=== PATIENT | male | born 1950 | race Caucasian/White ===

== ENCOUNTER → 2019-01-10 | Outpatient (CLI) | payer OTHER ==
[~2019-01-10] MED LIST: AMINOPHYLLINE INJ/PF 250 MG/10 ML SDV IV ONE; REGADENOSON INJ 0.4 MG/5 ML DISP.SYRIN IV ONE
--- NOTE | 2019-01-10 15:48 | DRAGON STRESS TEST REPORT ---
INTRAVENOUS LEXISCAN CARDIOLITE STRESS TEST USING SINGLE PHOTON EMMISION COMPUTERIZED TOMOGRAPHIC. DATE OF PROCEDURE: January 10, 2019, INDICATION : Dyspnea CARDIAC RISK FACTORS: Known CABG 2012, diabetes, hypertension, dyslipidemia RESTING EKG: Sinus rhythm without any baseline ST-T wave changes. STRESS EKG: No significant ST segment changes noted with LexiScan bolus REASON FOR TERMINATION: Protocol. PROCEDURE REPORT: Baseline heart rate 86 beats per minute with blood pressure of 165/79. Patient had no significant complaints. Patient was bolused with Lexiscan 0.4 mg intravenously followed by saline bolus. Heart rate at 2 minutes post bolus 83 with a blood pressure of 147/55. 3 minutes post bolus heart rate 82 with blood pressure of 157/63. No significant EKG changes were noted. Patient had no significant complaints during the procedure or postprocedure. CONCLUSIONS: Normal EKG and hemodynamic response to IV LexiScan. NUCLEAR DATA: At rest the patient was given 15.22 millicuries of technetium 99 sestamibi injected intravenously. As per protocol rest gated SPECT images were obtained. On day of stress test, the patient was given intravenous LexiScan at a dose of 0.4 mg in 5 mL intravenously, followed by flush with normal saline. Subsequently the stress dose of 46.9 millicuries of technetium 99 sestamibi was injected intravenously. As per protocol stress gated images were obtained. NUCLEAR INTERPRETATION: Both raw and processed data were used for interpretation. Visual, qualitative, computer-generated quantitative data was used. There was good myocardial uptake of technetium compound. Motion artifact and soft tissue attenuations were noted. Increased visceral uptake was noted. Diaphragmatic and subdiaphragmatic attenuation artifacts were noted. Mild inferior wall transient perfusion defect consistent with probable mild ischemia noted, No definitive areas of fixed perfusion defect or scars noted. EKG gated imaging showed LV EF at 60 %, rest and stress gated EF similar visually. T. I D. ratio was 0.84. Lung heart ratio noted to be within normal limits 0.37. No significant extracardiac and abnormal radiotracer activities were noted. RV free wall uptake was noted to be WNL. IMPRESSION: Also refer to comments under nuclear interpretation. Also test results needs to be interpreted in the context of pretest probability. 1. Mild inferior wall transient perfusion defect consistent with probable mild ischemia noted. However there were no corresponding regional wall motion abnormalities, possibility of this being artifactual cannot be entirely ruled out. Clinical correlation is requested. 2. There is no definitive scintigraphic evidence of myocardial infarction/scar. 3. EKG gated imaging shows left ventricular ejection fraction of approx. 60 %. 4. Clinical correlation requested as worse disease and or balanced ischemia could be missed. In approximately 10% of the cases Lexiscan may not cause adequate vasodilatory stress. RECOMMENDATIONS: Aggressive risk factor modification and medical management. Further evaluation may be needed if continued symptoms or other high risk indicators are noted on clinical evaluation. If patient has significant symptoms, may consider further evaluation, with a stress echo, stress MRI, PET stress scan etc. Close cardiology follow-up is also recommended. Clinical correlation with echocardiogram derived ejection fraction. Inability to exercise by itself can lead to increased cardiovascular event risks. Consider cardiology consultation and or follow-up if clinically indicated. I am available for cardiology evaluation and consultation if requested by the engineering model maker, unless patient already has a rod pointer. Dr. Jalen Dalton. MRCP Board certified in cardiology and sleep medicine. Board certified in nuclear cardiology, adult echocardiography. PHU
== END ==
LOC: RAD 06:13
PROVIDERS: ATTEND Physician Assistant Medical
DX: I25.10 Atherosclerotic heart disease of native coronary artery without angina pectoris (principal); Z95.1 Presence of aortocoronary bypass graft; I10 Essential (primary) hypertension
CPT/HCPCS: 93017; 78452; A9500; J2785; J0280; Q9969

== ENCOUNTER 2020-03-02 11:43 | Observation (INO) | payer OTHER ==
--- NOTE | 2020-03-02 12:40 | ER Document Report ---
ED Medical Screen (RME) - General Stated Complaint: CHEST TIGHTNESS Time Seen by Provider: 03/02/20 12:34 Primary Care Provider: KAYLIN VILLA PA [Primary Care Provider] - Follow up as needed Mode of Arrival: Ambulatory Information source: Patient Notes: HPI; 69-year-old male past medical history significant for hypertension, diabetes, open heart surgery presents to the emergency room with intermittent chest tightness for the past 3 to 4 months. States it happens daily last for about 10 to 15 minutes and goes away without intervention. He denies any diaphoresis, no nausea, no vomiting. Denies any shortness of breath. Has been taking Tylenol with relief. PE: Alert and oriented x3. Lungs: Clear to auscultation without rales, rhonchi, wheezes. Heart: Regular rate rhythm without murmurs, rubs, gallops. I have greeted and performed a rapid initial assessment of this patient. A comprehensive ED assessment and evaluation of the patient, analysis of test results and completion of the medical decision making process will be conducted by additional ED providers. I have specifically instructed the patient or family members with the patient to immediately return to any nursing staff should anything change in the patient's condition or with their chief complaint. TRAVEL OUTSIDE OF THE [place] IN LAST 30 DAYS: No Physical Exam - Vital signs Vitals: Temp Pulse Resp BP Pulse Ox 98.6 F 61 18 163/88 H 98 03/02/20 12:28 03/02/20 12:28 03/02/20 12:28 03/02/20 12:28 03/02/20 12:28 Course - Vital Signs Vital signs: Temp Pulse Resp BP Pulse Ox 98.6 F 61 18 163/88 H 98 03/02/20 12:28 03/02/20 12:28 03/02/20 12:28 03/02/20 12:28 03/02/20 12:28 Doctor's Discharge - Discharge Referrals: KAYLIN VILLA PA [Primary Care Provider] - Follow up as needed
[2020-03-02 13:17] LABS: ABSOLUTE BASOPHILS # (AUTO) 0.1 10^3/uL (0.0-0.2); ABSOLUTE EOSINOPHILS # (AUTO) 0.1 10^3/uL (0.0-0.6); ABSOLUTE LYMPHOCYTES (AUTO) 1.6 10^3/uL (0.5-4.7); ABSOLUTE MONOCYTES (AUTO) 1.1 10^3/uL (0.1-1.4); BASOPHILS % (AUTO) 0.6 % (0-2); EOSINOPHILS % (AUTO) 1.1 % (0-6); HEMATOCRIT 41.9 % (37.9-51.0); HEMOGLOBIN 14.9 g/dL (13.5-17.0); LYMPHOCYTES % (AUTO) 16.5 % (13-45); MEAN CORPUSCULAR HEMOGLOBIN 33.5 pg (27.0-33.4); MEAN CORPUSCULAR HGB CONC 35.5 g/dL (32.0-36.0); MEAN CORPUSCULAR VOLUME 95 fl (80-97); MONOCYTES % (AUTO) 11.2 % (3-13); PLATELET COUNT 200 10^3/uL (150-450); RED BLOOD COUNT 4.43 10^6/uL (4.35-5.55); SEGMENTED NEUTROPHILS % (AUTO) 70.6 % (42-78); TOTAL CELLS COUNTED % (AUTO) 100 %; WHITE BLOOD COUNT 9.9 10^3/uL (4.0-10.5)
--- NOTE | 2020-03-02 13:20 | RADIOLOGY REPORT (SQ) ---
EXAM DESCRIPTION: CHEST 2 VIEWS IMAGES COMPLETED DATE/TIME: 03/02/2020 1:06 pm REASON FOR STUDY: chest pain COMPARISON: None. EXAM PARAMETERS: NUMBER OF VIEWS: two views TECHNIQUE: Digital Frontal and Lateral radiographic views of the chest acquired. RADIATION DOSE: NA LIMITATIONS: none FINDINGS: LUNGS AND PLEURA: No opacities, masses or pneumothorax. No pleural effusion. MEDIASTINUM AND HILAR STRUCTURES: No masses or contour abnormalities. HEART AND VASCULAR STRUCTURES: Heart normal size. No evidence for failure. BONES: No acute findings. HARDWARE: Prior anterior median sternotomy. OTHER: No other significant finding. IMPRESSION: 1. NO ACUTE RADIOGRAPHIC FINDING IN THE CHEST. TECHNICAL DOCUMENTATION: JOB ID: [id number] 2010 [employer]- All Rights Reserved Reading location - IP/workstation name: [email or web address]
[2020-03-02 13:36] LABS: ALBUMIN 4.2 g/dL (3.5-5.0); ALKALINE PHOSPHATASE 63 U/L (38-126); ANION GAP 6 (5-19); ASPARTATE AMINO TRANSFERASE 34 U/L (17-59); BILIRUBIN,DIRECT 0.2 mg/dL (0.0-0.4); BILIRUBIN,TOTAL 0.9 mg/dL (0.2-1.3); BLOOD UREA NITROGEN 10 mg/dL (7-20); CALCIUM 9.7 mg/dL (8.4-10.2); CARBON DIOXIDE 30 mmol/L (22-30); CHLORIDE 102 mmol/L (98-107); GLUCOSE 104 mg/dL (75-110); POTASSIUM 4.5 mmol/L (3.6-5.0); TOTAL PROTEIN 6.9 g/dL (6.3-8.2)
--- NOTE | 2020-03-02 15:53 | EKG REPORT ---
SEVERITY:- ABNORMAL ECG - SINUS RHYTHM NONSPECIFIC T ABNORMALITIES, INFERIOR LEADS : Confirmed by: Brenda Donovan MD 02-Mar-2020 15:53:13
[2020-03-02] MEDS ORDERED: METOPROLOL TARTRATE 25 MG TABLET PO ONE ×2 (19:34→23:00)
--- NOTE | 2020-03-02 19:45 | ER Document Report ---
ED Cardiac - General Stated Complaint: CHEST TIGHTNESS Time Seen by Provider: 03/02/20 12:34 Primary Care Provider: KAYLIN VILLA PA [PHYSICIAN [facility]] - Follow up as needed Mode of Arrival: Ambulatory Notes: CHIEF COMPLAINT: Chest pain HPI: 69-year-old male with history of diabetes, hypertension, dyslipidemia, CABG x2 8 years ago presenting for evaluation of intermittent midsternal chest discomfort that he describes as an irritation that he states is somewhat exertional in nature. It occurs almost daily, does not occur at rest. Has not had it at all today. Does not have any radiation of the discomfort into the back neck or shoulders. Reports no shortness of breath with this no abdominal pain nausea or vomiting. Patient follows with cardiology at the [facility]. States his last stress test was in 2019. ROS: See HPI - all other systems were reviewed and are otherwise negative Constitutional: no fever Eyes: no drainage, no blurred vision ENT: no runny nose, no sore throat Cardiovascular: + chest pain Resp: no SOB, no cough GI: no vomiting, no diarrhea, no abdominal pain : no dysuria Integumentary: no rash Allergy: no hives Musculoskeletal: no extremity pain or swelling Neurological: no numbness/tingling, no weakness MEDICATIONS: I agree with the patient medications as charted by the RN. ALLERGIES: I agree with the allergies as charted by the RN. PAST MEDICAL HISTORY/PAST SURGICAL HISTORY: Reviewed and agree as charted by RN. SOCIAL HISTORY: Reviewed and agree as charted by RN. FAMILY HISTORY: No significant familial comorbid conditions directly related to patient complaint EXAM: Reviewed vital signs as charted by RN. CONSTITUTIONAL: Alert and oriented and responds appropriately to questions. Well-appearing; well-nourished HEAD: Normocephalic; atraumatic EYES: PERRL; Conjunctivae clear, sclerae non-icteric ENT: normal nose; no rhinorrhea; moist mucous membranes; pharynx without lesions noted, no uvula edema or deviation, no tonsillar hypertrophy, phonation normal NECK: Supple without meningismus; non-tender; no cervical lymphadenopathy, no masses CARD: RRR; no murmurs, no clicks, no rubs, no gallops; symmetric distal pulses RESP: Normal chest excursion without splinting or tachypnea; breath sounds clear and equal bilaterally; no wheezes, no rhonchi, no rales, pulse oximetry 97% on room air not hypoxic ABD/GI: Normal bowel sounds; non-distended; soft, non-tender, no rebound, no guarding; no palpable organomegaly or masses. BACK: The back appears normal and is non-tender to palpation, there is no CVA tenderness EXT: Normal ROM in all joints; non-tender to palpation; no cyanosis, no effusions, no edema SKIN: Normal color for age and race; warm; dry; good turgor; no acute lesions noted NEURO: Moves all extremities equally; Motor and sensory function intact PSYCH: The patient's mood and manner are appropriate. Grooming and personal hygiene are appropriate. MDM: 69-year-old male with significant cardiac history presenting for chest pain episodes that have been ongoing for 3 or 4 months. Seems to be somewhat exertional in nature. When I spoke with the patient at length he begins to backtrack and states that it only occurs when he changes from cold to hot or hot to cold temperatures. No radiation of the symptoms. Patient's initial troponin was 0.036. EKG normal sinus rhythm with a ventricular rate of 63 MA 188 QT 408 QTC 418. There are nonspecific T wave abnormalities in the inferior and lateral leads. No old EKG for comparison. Abnormal EKG. Interpreted by emergency department physicians. Patient is noted to be moderately hypertensive. He is not sure of his medications but believes he takes his metoprolol twice daily. Shirley fam has not taken his evening dose. Will give his evening dose. He is not having any chest discomfort at this time. Appears to be in a normal sinus rhythm on the monitor at this time. I spoke with the patient at length given his history that he will likely need admission to the hospital for repeat stress test and sequential troponins. Patient states adamantly that he wants to go home after his next troponin. He is willing to stay for that but states that his is here and he does not wish to stay to be admitted. He is aware that we cannot rule out that he is having exertional angina or ACS. I spoke with Dr. Oquendo attending about this at length. TRAVEL OUTSIDE OF THE [place] IN LAST 30 DAYS: No Past Medical History - General Information source: Patient - Social History Smoking Status: Unknown if Ever Smoked Family History: CAD Physical Exam - Vital signs Vitals: Temp Pulse Resp BP Pulse Ox 98.6 F 61 18 163/88 H 98 03/02/20 12:28 03/02/20 12:28 03/02/20 12:28 03/02/20 12:28 03/02/20 12:28 Course - Re-evaluation Re-evalutation: 03/02/20 20:14 Patient is spoken to his who insists that she wishes the patient to stay. Patient states that he will stay to have further evaluation. Second troponin being drawn at this time. 03/02/20 20:[address] Mckeon cardiology. Case was discussed, labs and EKG were reviewed. He states he will be happy to consult on the patient if hospitalist admits. Spoke with Dr. Torrez, hospitalist. Case was discussed labs were reviewed will come see the patient. - Vital Signs Vital signs: Temp Pulse Resp BP Pulse Ox 98.6 F 61 18 163/88 H 98 03/02/20 12:28 03/02/20 12:28 03/02/20 12:28 03/02/20 12:28 03/02/20 12:28 - Laboratory Result Diagrams: 03/02/20 12:55 03/02/20 12:55 Laboratory results interpreted by me: 03/02/20 12:55 MCH 33.5 H Discharge - Discharge Clinical Impression: Chest pain Qualifiers: Chest pain type: other chest pain Qualified Code(s): R07.89 - Other chest pain; R07.8 - Other chest pain HTN (hypertension) Qualifiers: Hypertension type: essential hypertension Qualified Code(s): I10 - Essential (primary) hypertension Condition: Stable Disposition: ADMITTED OBSERVATION Admitting Provider: Shan Unit Admitted: Telemetry Referrals: KAYLIN VILLA PA [PHYSICIAN [facility]] - Follow up as needed
[2020-03-02] MEDS ORDERED: NITROGLYCERIN 2% OINTMENT 1 GM PACKET TP ONE (20:15)
[2020-03-02] MEDS ORDERED: ACETAMINOPHEN 325 MG TABLET PO PRN (21:07)
[2020-03-02] MEDS ORDERED: ONDANSETRON HCL INJ/PF 4 MG/2 ML SDV IV PRN (21:07)
--- NOTE | 2020-03-02 21:12 | PDOC H&P ---
History of Present Illness Admission Date/PCP: 03/02/20 20:44 TEOFILO MAXWELL DO Patient complains of: Chest tightness History of Present Illness: NIECY CARBONE is a 69 year old male with a history of CAD status post CABG, diabetes, hypertension and hyperlipidemia who presents with few weeks duration of intermittent chest pain. He describes the pain as left-sided, tightness, 3- 5/10 intensity, lasting for 10-12 minutes, nonradiating, not associated with exertion. Last episode was 1 day ago. Patient has not noticed any aggravating or relieving factor for his pain. Patient denies having any chest pain today but was told by his primary care doctor at the [facility] to go to the ER. Patient denies any shortness of breath, diaphoresis, nausea, vomiting. He also denies any cough, fever, chills or any recent sick contact history. Social History Information Source: Patient Lives with: Family Smoking Status: Never Smoker Frequency of Alcohol Use: Rare Hx Recreational Drug Use: No Drugs: None - Advance Directive Resuscitation Status: Full Code Family History Family History: CAD Parental Family History Reviewed: Yes Children Family History Reviewed: Yes Sibling(s) Family History Reviewed.: Yes Review of Systems Constitutional: ABSENT: chills, fever(s), headache(s), weight gain, weight loss Eyes: ABSENT: visual disturbances Ears: ABSENT: hearing changes Nose, Mouth, and Throat: ABSENT: headache(s), mouth pain, sore throat, vertigo Cardiovascular: PRESENT: as per HPI Respiratory: PRESENT: as per HPI Gastrointestinal: ABSENT: abdominal pain, constipation, diarrhea, hematemesis, hematochezia, nausea, vomiting Genitourinary: ABSENT: dysuria, hematuria Musculoskeletal: ABSENT: joint swelling Integumentary: ABSENT: rash, wounds Neurological: ABSENT: abnormal gait, abnormal speech, confusion, dizziness, focal weakness, syncope Psychiatric: ABSENT: anxiety, depression, homidical ideation, suicidal ideation Endocrine: ABSENT: cold intolerance, heat intolerance, polydipsia, polyuria Hematologic/Lymphatic: ABSENT: easy bleeding, easy bruising Physical Exam Vital Signs: Temp Pulse Resp BP Pulse Ox 98.6 F 58 L 14 180/90 H 97 03/02/20 20:38 03/02/20 20:38 03/02/20 20:38 03/02/20 20:38 03/02/20 20:38 Intake & Output 03/01/20 03/02/20 03/03/20 06:59 06:59 06:59 Weight 112.6 kg Additional comments: GENERAL APPEARANCE: Alert and oriented x3, in no acute distress HEENT: Normocephalic and atraumatic. No scleral icterus. Moist oral mucosa NECK: Supple. No lymphadenopathy or tenderness. No carotid bruit. No JVD CHEST: Symmetric. Nontender to palpation. LUNGS: Clear with good air entry bilaterally. No wheezing or crackles HEART: Regular rate and rhythm with normal S1 and S2. No murmurs, gallops, or rubs. ABDOMEN: Flat, soft, active bowel sounds, no direct or rebound tenderness. No organomegaly detected. EXTREMITIES: No cyanosis, clubbing, or edema. MUSCULOSKELETAL: No deformity, atrophy or swelling noted PSYCHIATRIC: Recent and remote memory is intact. Appropriate mood and affect. SKIN: Warm, dry, and well perfused. No lesions or rashes are noted. NEUROLOGIC: No focal sensory or motor deficits are noted. Results Laboratory Results: 03/02/20 12:55 03/02/20 12:55 03/02/20 03/02/20 12:55 12:55 WBC 9.9 RBC 4.43 Hgb 14.9 Hct 41.9 MCV 95 MCH 33.5 H MCHC 35.5 RDW 13.0 Plt Count 200 Seg Neutrophils % 70.6 Sodium 138.4 Potassium 4.5 Chloride 102 Carbon Dioxide 30 Anion Gap 6 BUN 10 Creatinine 0.91 Est GFR ( Amer) > 60 Glucose 104 Calcium 9.7 Total Bilirubin 0.9 AST 34 Alkaline Phosphatase 63 Total Protein 6.9 Albumin 4.2 03/02/20 12:55 Troponin I 0.036 Impressions: Chest X-Ray 03/02/20 12:39 IMPRESSION: 1. NO ACUTE RADIOGRAPHIC FINDING IN THE CHEST. Assessment and Plan - Diagnosis (1) Chest pain Qualifiers: Chest pain type: other chest pain Qualified Code(s): R07.89 - Other chest pain; R07.8 - Other chest pain Is this a current diagnosis for this admission?: Yes Plan: Patient presents with atypical chest pain Has multiple risk factors Had a stress test in 2019, and patient states that it was negative Initial cardiac enzyme 0.036 EKG shows inverted T waves on inferior leads Continue trending cardiac enzymes and EKG every 6 hourly Continue aspirin, atorvastatin, metoprolol Nitroglycerin as needed for chest pain Placed him on telemetry monitoring Touch base with cardiology in the morning (2) Type 2 diabetes mellitus Is this a current diagnosis for this admission?: Yes Plan: Hold Metformin for now while inpatient Sliding scale insulin, Accu-Chek and hypoglycemia protocol On diabetic diet (3) Hyperlipidemia Is this a current diagnosis for this admission?: Yes Plan: We will check lipid panel Continue high intensity statin (4) CAD (coronary artery disease) Is this a current diagnosis for this admission?: Yes Plan: Status post CABG in 2012 Now admitted for chest pain rule out ACS Continue aspirin and statin Rest of management as outlined above under chest pain (5) HTN (hypertension) Qualifiers: Hypertension type: essential hypertension Qualified Code(s): I10 - Essential (primary) hypertension Is this a current diagnosis for this admission?: Yes Plan: We will continue to adjust medication for optimal management of his blood pressure Continue home losartan, amlodipine and metoprolol (6) Obesity (BMI 30-39.9) Is this a current diagnosis for this admission?: Yes Plan: Encourage lifestyle adjustments including dietary change and exercise to attain optimal weight - Time Time Spent with patient: 35 or more minutes Total Critical Time (Minutes): 40 Medications reviewed and adjusted accordingly: Yes Anticipated Discharge Disposition: Home, Self Care Anticipated Discharge Timeframe: within 48 hours - Inpatient Certification Based on my medical assessment, after consideration of the patient's comorbidities, presenting symptoms, or acuity I expect that the services needed warrant INPATIENT care.: Yes I certify that my determination is in accordance with my understanding of Medicare's requirements for reasonable and necessary INPATIENT services [42 CFR 412.3e].: Yes Medical Necessity: Need Close Monitoring Due to Risk of Patient Decompensation, Need For Continuous Telemetry Monitoring Post Hospital Care: D/C or Transfer Summary
[2020-03-02] MEDS ORDERED: ZOLPIDEM TARTRATE 5 MG TABLET PO PRN (21:44)
[2020-03-02] MEDS ORDERED: ATORVASTATIN CALCIUM 80 MG TABLET PO SCH (22:00)
[2020-03-02] MEDS: AMLODIPINE BESYLATE 10 MG TABLET PO SCH (22:02)
[2020-03-02] MEDS: FAMOTIDINE 20 MG TABLET PO SCH (22:02)
[2020-03-02] MEDS ORDERED: DEXTROSE 40% GEL 15 GM TUBE PO PRN ×2 (22:11)
[2020-03-02] MEDS ORDERED: GLUCAGON,HUMAN RECOMB 1 MG INJ IM PRN (22:11)
[2020-03-02] MEDS ORDERED: DEXTROSE 50%-WATER 25 GM/50 ML DISP.SYRIN IV PRN ×2 (22:11)
[2020-03-03 06:10] LABS: CHOLESTEROL 104.72 mg/dL (0-200); TRIGLYCERIDES 114 mg/dL (<150)
[2020-03-03 06:21] LABS: DIRECT LDL 47 mg/dL (<100)
[2020-03-03] MEDS ORDERED: INSULIN REG, HUMAN 100 UNIT/ML 3 ML VIAL (PYX) SUBCUT SCH (08:00)
--- NOTE | 2020-03-03 08:11 | PDOC CONSULTATION ---
Consultation Consult Date: 03/03/20 Attending physician:: SHANNAN WHEAT Provider Consulted: RODGER HARRIS Consult reason:: CP History of Present Illness Admission Date/PCP: 03/02/20 20:44 TEOFILO MAXWELL DO History of Present Illness: NIECY CARBONE is a 69 year old male with a history of CAD status post two- vessel CABG in 2011 in [place], diabetes, hypertension and hyperlipidemia who is consulted to our service for evaluation of chest pain. The patient began with chest pain approximately 3 weeks ago and describes it as a very mild irritation "like a baby scratching my chest", localized to the substernal area, lasting for approximately 10 minutes, triggered when moving to hot weather to air conditioning and vice versa, it resolves spontaneously, it is not triggered by his daily chores (this patient is very sedentary) and is not associated with shortness of breath, diaphoresis, palpitations, dizziness, lightheadedness, syncope or presyncope. He did have a mildly abnormal Lexiscan nuclear stress test in December 2018 at this facility with mild inferior wall ischemia versus artifact. He states that he was then referred to a office technology instructor at [facility] where, per his report, he underwent echocardiography with normal results. He states that he sees a office technology instructor in [place] every 6 months however does not remember his name. Since he was admitted to the emergency room he has remained hemodynamically stable and chest pain-free. His EKG is unremarkable for ischemia. He is eager to go home. Physical exam on 03/03/2020: GENERAL: Obese. Pleasant and conversational. Oriented x3 with normal mood. Not in acute distress. Well groomed and well developed. HEENT: Normocephalic, atraumatic. Pupils equal. Sclerae anicteric. Oropharynx moist. NECK: No JVD. No carotid bruits. LUNGS: Clear to auscultation bilaterally. Normal respiratory effort without the use of accessory muscles or intercostal retractions. CARDIOVASCULAR: Regular rate and rhythm, normal S1 and S2 without murmurs, rubs, or gallops. PMI not displaced. EXTREMITIES: No edema, no cyanosis, no clubbing. +2 pulses femoral and pedal pulses bilaterally. SKIN: No lesions or rashes. MUSCULOSKELETAL: No chest tenderness to palpation. NEUROLOGIC: Nonfocal. No gross sensory or motor deficits bilateral upper or lower extremities. Social History Lives with: Family Smoking Status: Never Smoker Frequency of Alcohol Use: Rare Hx Recreational Drug Use: No Drugs: None - Advance Directive Resuscitation Status: Full Code Family History Family History: CAD Parental Family History Reviewed: Yes Children Family History Reviewed: Yes Sibling(s) Family History Reviewed.: Yes Physical Exam Vital Signs: Temp Pulse Resp BP Pulse Ox 98.5 F 55 L 16 135/84 H 97 03/03/20 00:15 03/03/20 00:15 03/03/20 00:15 03/03/20 00:15 03/03/20 00:15 Intake & Output 03/02/20 03/03/20 03/04/20 06:59 06:59 06:59 Weight 112.6 kg Results Laboratory Results: 03/02/20 12:55 03/02/20 12:55 03/02/20 03/02/20 03/03/20 12:55 12:55 05:07 WBC 9.9 RBC 4.43 Hgb 14.9 Hct 41.9 MCV 95 MCH 33.5 H MCHC 35.5 RDW 13.0 Plt Count 200 Seg Neutrophils % 70.6 Sodium 138.4 Potassium 4.5 Chloride 102 Carbon Dioxide 30 Anion Gap 6 BUN 10 Creatinine 0.91 Est GFR ( Amer) > 60 Glucose 104 Calcium 9.7 Total Bilirubin 0.9 AST 34 Alkaline Phosphatase 63 Total Protein 6.9 Albumin 4.2 Triglycerides 114 Cholesterol 104.72 LDL Cholesterol Direct 47 VLDL Cholesterol 23.0 HDL Cholesterol 38 L 03/02/20 03/02/20 03/02/20 12:55 20:18 23:31 Troponin I 0.036 0.030 0.038 03/03/20 05:07 Troponin I 0.040 Impressions: Chest X-Ray 03/02/20 12:39 IMPRESSION: 1. NO ACUTE RADIOGRAPHIC FINDING IN THE CHEST. 03/02/20 12:55 03/02/20 12:55 MCV 95 fl (80-97) 03/02/20 12:55 MCH 33.5 pg (27.0-33.4) H 03/02/20 12:55 MCHC 35.5 g/dL (32.0-36.0) 03/02/20 12:55 RDW 13.0 % (11.5-14.0) 03/02/20 12:55 Seg Neutrophils % 70.6 % (42-78) 03/02/20 12:55 Chloride 102 mmol/L (98-107) 03/02/20 12:55 Carbon Dioxide 30 mmol/L (22-30) 03/02/20 12:55 Anion Gap 6 (5-19) 03/02/20 12:55 Est GFR ( Amer) > 60 (>60) 03/02/20 12:55 Glucose 104 mg/dL (75-110) 03/02/20 12:55 Calcium 9.7 mg/dL (8.4-10.2) 03/02/20 12:55 Total Bilirubin 0.9 mg/dL (0.2-1.3) 03/02/20 12:55 AST 34 U/L (17-59) 03/02/20 12:55 Alkaline Phosphatase 63 U/L (38-126) 03/02/20 12:55 Total Protein 6.9 g/dL (6.3-8.2) 03/02/20 12:55 Albumin 4.2 g/dL (3.5-5.0) 03/02/20 12:55 Triglycerides 114 mg/dL (<150) 03/03/20 05:07 Cholesterol 104.72 mg/dL (0-200) 03/03/20 05:07 LDL Cholesterol Direct 47 mg/dL (<100) 03/03/20 05:07 VLDL Cholesterol 23.0 mg/dL (10-31) 03/03/20 05:07 HDL Cholesterol 38 mg/dL (>40) L 03/03/20 05:07 03/02/20 03/02/20 03/02/20 12:55 20:18 23:31 Troponin I 0.036 0.030 0.038 03/03/20 05:07 Troponin I 0.040 Current Medication List Generic Name Dose Route Start Last Admin Trade Name Freq PRN Reason Stop Dose Admin Acetaminophen 650 mg 03/02/20 21:07 Acetaminophen 325 Mg Tablet PO 04/01/20 21:06 Q4HP PRN FOR HEADACHE Amlodipine Besylate 10 mg 03/02/20 22:00 03/02/20 22:02 Amlodipine Besylate 10 Mg Tablet PO 04/01/20 21:59 10 mg DAILY KAYLA Administration Aspirin 81 mg 03/03/20 10:00 Aspirin 81 Mg Tablet, Chewable PO 04/02/20 09:59 DAILY KAYLA Atorvastatin Calcium 80 mg 03/02/20 22:00 03/02/20 22:03 Atorvastatin Calcium 80 Mg Tablet PO 04/01/20 21:59 80 mg QHS KAYLA Administration Dextrose 12.5 gm 03/02/20 22:11 Dextrose 50%-Water 25 Gm/50 Ml Disp.Syrin IV 04/01/20 22:10 PRN PRN FOR BG 50-69 IN ALERT PATIENT Protocol Dextrose 25 gm 03/02/20 22:11 Dextrose 50%-Water 25 Gm/50 Ml Disp.Syrin IV 04/01/20 22:10 PRN PRN PER PROTOCOL Protocol Enoxaparin Sodium 40 mg 03/03/20 10:00 Enoxaparin Sodium Inj 40 Mg/0.4 Ml Disp.Syrin SUBCUT 04/02/20 09:59 DAILY KAYLA Famotidine 20 mg 03/02/20 22:00 03/02/20 22:02 Famotidine 20 Mg Tablet PO 04/01/20 21:59 20 mg Q12 KAYLA Administration Glucagon 1 mg 03/02/20 22:11 Glucagon,Human Recomb 1 Mg Inj IM 04/01/20 22:10 PRN PRN Evaluate for BG < 70 Protocol Glucose 15 gm 03/02/20 22:11 Dextrose 40% Gel 15 Gm Tube PO 04/01/20 22:10 PRN PRN FOR BG 50-69 IN ALERT PATIENT Protocol Glucose 30 gm 03/02/20 22:11 Dextrose 40% Gel 15 Gm Tube PO 04/01/20 22:10 PRN PRN FOR BG < 50 IN ALERT PATIENT Protocol Insulin Human Regular 0 - 12 unit 03/03/20 08:00 Insulin Reg, Human 100 Unit/Ml 3 Ml Vial (Pyx) SUBCUT 04/02/20 07:59 ACHS [facility] Protocol Losartan Potassium 50 mg 03/03/20 10:00 Losartan Potassium 50 Mg Tablet PO 04/02/20 09:59 DAILY [facility] Metoprolol Tartrate 25 mg 03/03/20 10:00 Metoprolol Tartrate 25 Mg Tablet PO 04/02/20 09:59 Q12 [facility] Ondansetron HCl 4 mg 03/02/20 21:07 Ondansetron Hcl Inj/Pf 4 Mg/2 Ml Sdv IV 04/01/20 21:06 Q8HP PRN FOR NAUSEA/VOMITING Zolpidem Tartrate 10 mg 03/03/20 22:00 Zolpidem Tartrate 5 Mg Tablet PO 03/10/20 21:59 QHS KAYLA Discontinued Medications Generic Name Dose Route Start Last Admin Trade Name Srinath PRN Reason Stop Dose Admin Metoprolol Tartrate 25 mg 03/02/20 19:34 03/02/20 19:56 Metoprolol Tartrate 25 Mg Tablet PO 03/02/20 19:35 25 mg NOW ONE Administration Metoprolol Tartrate 25 mg 03/02/20 23:00 03/02/20 22:59 Metoprolol Tartrate 25 Mg Tablet PO 03/02/20 23:01 Not Given NOW ONE Nitroglycerin 1 gm 03/02/20 20:15 03/02/20 20:26 Nitroglycerin 2% Ointment 1 Gm Packet TP 03/02/20 20:16 1 gm NOW ONE Administration Zolpidem Tartrate 10 mg 03/02/20 21:44 Zolpidem Tartrate 5 Mg Tablet PO 03/09/20 21:43 HSP PRN SLEEP OR INSOMNIA Assessment & Plan - Diagnosis (1) CAD (coronary artery disease) Qualifiers: Coronary Disease-Associated Artery/Lesion type: bypass graft Associated angina: with stable angina Is this a current diagnosis for this admission?: Yes Plan: 69-year-old male with the above history who now presents to the hospital with a 3 weeks history of atypical chest pain in the setting of a mildly abnormal Lexiscan nuclear stress test in December 2018 which was followed by an echocardiogram in [place] with apparently normal results. He describes a v katarzyna atypical chest pain and his cardiac troponins, although detectable, they are indeterminate range and flat. At this time I do not see an acute indication for this patient to be admitted to the hospital and we will proceed with medical management as depicted below. He was instructed to call his office technology instructor in [place] as soon as he is discharged to arrange for follow-up appointment within 1 to 2 weeks. Recommendations: -Continue with current outpatient medical management. -Add Imdur 15 mg p.o. daily. -Sublingual nitroglycerin as instructed. -Call 911 if symptoms recur. -The patient may be discharged home from the cardiovascular standpoint with follow-up with his outpatient office technology instructor within 1 or 2 weeks. (2) HTN (hypertension) Qualifiers: Hypertension type: essential hypertension Qualified Code(s): I10 - Ess ential (primary) hypertension Is this a current diagnosis for this admission?: Yes (3) Hyperlipidemia Is this a current diagnosis for this admission?: Yes (4) Type 2 diabetes mellitus Is this a current diagnosis for this admission?: Yes
[2020-03-03] MEDS: AMLODIPINE BESYLATE 10 MG TABLET PO SCH (09:29)
[2020-03-03] MEDS: FAMOTIDINE 20 MG TABLET PO SCH (09:30)
[2020-03-03] MEDS ORDERED: ENOXAPARIN SODIUM INJ 40 MG/0.4 ML DISP.SYRIN SUBCUT SCH (10:00)
[2020-03-03] MEDS ORDERED: ISOSORBIDE MONONITRATE 30 MG TAB.ER.24H PO SCH (10:00)
[2020-03-03] MEDS ORDERED: LOSARTAN POTASSIUM 50 MG TABLET PO SCH (10:00)
[2020-03-03] MEDS ORDERED: ASPIRIN 81 MG TABLET, CHEWABLE PO SCH (10:00)
[2020-03-03] MEDS ORDERED: METOPROLOL TARTRATE 25 MG TABLET PO SCH (10:00)
[2020-03-03 10:44] VITALS: BP 138/90
--- NOTE | 2020-03-03 15:22 | EKG REPORT ---
SEVERITY:- NORMAL ECG - SINUS RHYTHM : Confirmed by: Brenda Donovan MD 03-Mar-2020 15:20:59
[2020-03-03] MEDS ORDERED: ZOLPIDEM TARTRATE 5 MG TABLET PO SCH (22:00)
--- NOTE | 2020-03-04 18:27 | PDOC DISCHARGE SUMMARY ---
Impression - Admit/DC Date/PCP Admission Date/Primary Care Provider: 03/02/20 20:44 TEOFILO MAXWELL, Discharge Date: 03/03/20 - Discharge Diagnosis (1) CAD (coronary artery disease) Is this a current diagnosis for this admission?: Yes (2) Chest pain Is this a current diagnosis for this admission?: Yes (3) HTN (hypertension) Is this a current diagnosis for this admission?: Yes (4) Hyperlipidemia Is this a current diagnosis for this admission?: Yes (5) Obesity (BMI 30-39.9) Is this a current diagnosis for this admission?: Yes (6) Type 2 diabetes mellitus Is this a current diagnosis for this admission?: Yes - Additional Information Resuscitation Status: Full Code Discharge Diet: Cardiac, Diabetic Discharge Activity: Activity As Tolerated, Balance Activity w/Rest, Slowly Increase Activity Referrals: KAYLIN VILLA PA [PHYSICIAN STEMMER MACHINE] - Follow up as needed (Follow up within 1 week.) Prescriptions: Isosorbide Mononitrate [Imdur 30 mg Tablet.er] 15 mg PO DAILY #15 tab.er.24h Home Medications: Acetaminophen [Tylenol 325 mg Tablet] 650 mg PO Q4HP PRN #0 tablet 03/03/20 Isosorbide Mononitrate [Imdur 30 mg Tablet.er] 15 mg PO DAILY #15 tab.er.24h 03/03/20 History of Present Illiness History of Present Illness: Per H&P by Dr. Torrez: NIECY CARBONE is a 69 year old male with a history of CAD status post CABG, diabetes, hypertension and hyperlipidemia who presents w ith few weeks duration of intermittent chest pain. He describes the pain as left-sided, tightness, 3-5/10 intensity, lasting for 10-12 minutes, nonradiating, not associated with exertion. Last episode was 1 day ago. Patient has not noticed any aggravating or relieving factor for his pain. Patient denies having any chest pain today but was told by his primary care doctor at the [facility] to go to the ER. Patient denies any shortness of breath, diaphoresis, nausea, vomiting. He also denies any cough, fever, chills or any recent sick contact history. Hospital Course Hospital Course: The patient was admitted for atypical chest pain with multiple risk factors. EKG showed inverted T waves in inferior leads. Serial troponins were indeterminate but flat x4. Lipid panel acceptable. No abnormal rhythms noted on telemetry. Chest x-ray benign. Cardiology was consulted; per Dr. Mckeon, patient stable for discharge to home with close follow-up by his established mold forms builder in [place] within the next 1 to 2 weeks. It is recommended that the patient start Imdur 15 mg p.o. daily and continue sublingual nitroglycerin as needed. Otherwise, continue home medication regiment unchanged. Discussed recommendations with patient and his spouse. Both were agreeable to discharge to home with outpatient follow-up. Physical Exam Vital Signs: Temp Pulse Resp BP Pulse Ox 98.1 F 55 L 15 138/90 H 96 03/03/20 10:01 03/03/20 00:15 03/03/20 10:01 03/03/20 10:00 03/03/20 10:01 Intake & Output 03/03/20 03/04/20 03/05/20 06:59 06:59 06:59 Weight 112.6 kg General appearance: PRESENT: no acute distress, cooperative, well-developed, w ell-nourished Head exam: PRESENT: atraumatic, normocephalic Eye exam: PRESENT: conjunctiva pink, EOMI, PERRLA. ABSENT: scleral icterus Mouth exam: PRESENT: moist, tongue midline Respiratory exam: PRESENT: clear to auscultation samir, symmetrical, unlabored, other - Room air. ABSENT: rales, rhonchi, wheezes Cardiovascular exam: PRESENT: RRR, +S1, +S2. ABSENT: diastolic murmur, rubs, systolic murmur Pulses: PRESENT: normal dorsalis pedis pul Vascular exam: PRESENT: normal capillary refill Extremities exam: PRESENT: full ROM. ABSENT: calf tenderness, clubbing, pedal edema Musculoskeletal exam: PRESENT: ambulatory Neurological exam: PRESENT: alert, awake, oriented to person, oriented to place, oriented to time, oriented to situation, CN II-XII grossly intact. ABSENT: motor sensory deficit Psychiatric exam: PRESENT: appropriate affect, normal mood. ABSENT: homicidal ideation, suicidal ideation Skin exam: PRESENT: dry, intact, warm. ABSENT: cyanosis, rash Results Laboratory Results: WBC 9.9 10^3/uL (4.0-10.5) 03/02/20 12:55 RBC 4.43 10^6/uL (4.35-5.55) 03/02/20 12:55 Hgb 14.9 g/dL (13.5-17.0) 03/02/20 12:55 Hct 41.9 % (37.9-51.0) 03/02/20 12:55 MCV 95 fl (80-97) 03/02/20 12:55 MCH 33.5 pg (27.0-33.4) H 03/02/20 12:55 MCHC 35.5 g/dL (32.0-36.0) 03/02/20 12:55 RDW 13.0 % (11.5-14.0) 03/02/20 12:55 Plt Count 200 10^3/uL (150-450) 03/02/20 12:55 Lymph % (Auto) 16.5 % (13-45) 03/02/20 12:55 [place] % (Auto) 11.2 % (3-13) 03/02/20 12:55 Eos % (Auto) 1.1 % (0-6) 03/02/20 12:55 Baso % (Auto) 0.6 % (0-2) 03/02/20 12:55 Absolute Neuts (auto) 7.0 10^3/uL (1.7-8.2) 03/02/20 12:55 Absolute Lymphs (auto) 1.6 10^3/uL (0.5-4.7) 03/02/20 12:55 Absolute Monos (auto) 1.1 10^3/uL (0.1-1.4) 03/02/20 12:55 Absolute Eos (auto) 0.1 10^3/uL (0.0-0.6) 03/02/20 12:55 Absolute Basos (auto) 0.1 10^3/uL (0.0-0.2) 03/02/20 12:55 Seg Neutrophils % 70.6 % (42-78) 03/02/20 12:55 Sodium 138.4 mmol/L (137-145) 03/02/20 12:55 Potassium 4.5 mmol/L (3.6-5.0) 03/02/20 12:55 Chloride 102 mmol/L (98-107) 03/02/20 12:55 Carbon Dioxide 30 mmol/L (22-30) 03/02/20 12:55 Anion Gap 6 (5-19) 03/02/20 12:55 BUN 10 mg/dL (7-20) 03/02/20 12:55 Creatinine 0.91 mg/dL (0.52-1.25) 03/02/20 12:55 Est GFR ( Amer) > 60 (>60) 03/02/20 12:55 Est GFR (MDRD) Non-Af > 60 (>60) 03/02/20 12:55 Glucose 104 mg/dL (75-110) 03/02/20 12:55 POC Glucose 120 mg/dL (70-110) H 03/03/20 07:40 Calcium 9.7 mg/dL (8.4-10.2) 03/02/20 12:55 Total Bilirubin 0.9 mg/dL (0.2-1.3) 03/02/20 12:55 Direct Bilirubin 0.2 mg/dL (0.0-0.4) 03/02/20 12:55 Neonat Total Bilirubin Not Reportable 03/02/20 12:55 Neonat Direct Bilirubin Not Reportable 03/02/20 12:55 Neonat Indirect Bili Not Reportable 03/02/20 12:55 AST 34 U/L (17-59) 03/02/20 12:55 ALT 29 U/L (<50) 03/02/20 12:55 Alkaline Phosphatase 63 U/L (38-126) 03/02/20 12:55 Troponin I 0.040 ng/mL 03/03/20 05:07 Total Protein 6.9 g/dL (6.3-8.2) 03/02/20 12:55 Albumin 4.2 g/dL (3.5-5.0) 03/02/20 12:55 Triglycerides 114 mg/dL (<150) 03/03/20 05:07 Cholesterol 104.72 mg/dL (0-200) 03/03/20 05:07 LDL Cholesterol Direct 47 mg/dL (<100) 03/03/20 05:07 VLDL Cholesterol 23.0 mg/dL (10-31) 03/03/20 05:07 HDL Cholesterol 38 mg/dL (>40) L 03/03/20 05:07 03/02/20 03/02/20 03/02/20 12:55 20:18 23:31 Troponin I 0.036 0.030 0.038 03/03/20 05:07 Troponin I 0.040 Impressions: Chest X-Ray 03/02/20 12:39 IMPRESSION: 1. NO ACUTE RADIOGRAPHIC FINDING IN THE CHEST. Plan Plan of Treatment: Patient is discharged home in stable condition. Advised follow-up with his primary care provider within 1 week. He is instructed to call his established mold forms builder, notify them of his hospital admission, and to follow-up as directed. He is advised to take his medications as prescribed. Continue a cardiac/consistent carb diet. Return to the emergency department, as needed, for concerning symptoms. Time Spent: Greater than 30 Minutes Stroke Is this a Stroke Patient?: No Acute Heart Failure Is this a Heart Failure Patient?: No
== END 2020-03-03 10:47 | disposition home or self-care (01) ==
LOC: ER 11:43 → EH 20:44
PROVIDERS: ADMIT Student in an Organized Health Care Education/Training Program; ATTEND Registered Nurse
DX: I25.10 Atherosclerotic heart disease of native coronary artery without angina pectoris (principal); R07.9 Chest pain, unspecified; I10 Essential (primary) hypertension; E78.5 Hyperlipidemia, unspecified; E66.9 Obesity, unspecified; E11.9 Type 2 diabetes mellitus without complications; Z95.1 Presence of aortocoronary bypass graft
CPT/HCPCS: 93005 ×2; 99285; 36415 ×2; 82962; 85025; 80053; 84484 ×2; 80061; 71046; 93010 ×2; G0378 ×2